=== PATIENT | female | born 2000 | race Caucasian/White ===

== ENCOUNTER 2019-09-23 13:19 | Emergency (ER) | payer OTHER ==
[2019-09-23 14:13] LABS: Influenza A Molecular Negative (Negative); Influenza B Molecular Negative (Negative)
--- NOTE | 2019-09-23 14:28 | UC ---
FLU HPI - HPI Summary HPI Summary: ONSET YESTERDAY OF SORE THROAT, COUGH, HEADACHE, FEVER, CHILLS AND FATIGUE. - History of Current Complaint Chief Complaint: UCGeneralIllness Stated Complaint: HEADACHE FEVER COUGH SORE THROAT Time Seen by Provider: 09/23/19 13:54 Hx Obtained From: Patient Hx Last Menstrual Period: control/condoms Onset/Duration: Gradual Onset, Lasting Days - 1 DAY, Still Present Severity Currently: Mild Severity Initially: Mild Pain Intensity: 0 Pain Scale Used: 0-10 Numeric Associated Signs & Symptoms: Positive: Fever, Cough, Sore Throat, Nasal Congestion, Headache - Allergy/Home Medications Allergies/Adverse Reactions: Allergies Allergy/AdvReac Type Severity Reaction Status Date / Time No Known Allergies Allergy Verified 09/23/19 13:50 Home Medications: Home Medications Enalapril TAB* [Vasotec TAB*] 1 tab PO DAILY WITH MEAL 09/23/19 [History Confirmed 09/23/19] PMH/Surg Hx/FS Hx/Imm Hx - Additional Past Medical History Additional PMH: SOLITARY RIGHT KIDNEY - Surgical History Surgical History: None - Family History Known Family History: Positive: Non-Contributory - Social History Alcohol Use: Rare Substance Use Type: None Smoking Status (MU): Never Smoked Tobacco Review of Systems All Other Systems Reviewed And Are Negative: Yes Constitutional: Positive: Fever, Chills, Fatigue ENT: Positive: Sore Throat, Nasal Discharge Respiratory: Positive: Cough Cardiovascular: Positive: Negative Gastrointestinal: Positive: Vomiting, Nausea Genitourinary: Positive: Negative Musculoskeletal: Negative: Myalgia Neurological/Mental Status: Positive: Headache Physical Exam Triage Information Reviewed: Yes Appearance: Well-Appearing, No Pain Distress, Well-Nourished Vital Signs: Initial Vital Signs Temp 100 F 09/23/19 13:45 Pulse 120 09/23/19 13:45 Resp 18 09/23/19 13:45 BP 106/66 09/23/19 13:45 Pulse Ox 100 09/23/19 13:45 Laboratory Tests 09/23/19 09/23/19 14:01 14:02 Influenza A (Rapid) Negative Influenza B (Rapid) Negative Group A Strep Rapid Negative Vital Signs Reviewed: Yes Eyes: Positive: Conjunctiva Clear ENT: Positive: Hearing grossly normal, Pharynx normal, TMs normal Neck: Positive: Supple, Nontender, No Lymphadenopathy Respiratory Exam: Normal Cardiovascular: Positive: Tachycardia Abdomen Description: Positive: Soft Musculoskeletal: Positive: No Edema Neurological: Positive: Alert Psychological: Positive: Age Appropriate Behavior Skin: Negative: Rashes Flu Course/Dx - Course Course Of Treatment: FLU NEGATIVE. STREP NEGATIVE. LIKELY VIRALLY MEDIATED SYMPTOMS THAT SHOULD RESOLVE ON THEIR OWN WITH TIME. ZOFRAN FOR NAUSEA. REST, HYDRATE, TYLENOL NEEDED. FOLLOW-UP IF NOT IMPROVING EXPECTED. - Differential Dx/Diagnosis Provider Diagnosis: Flu-like symptoms Discharge ED - Sign-Out/Discharge Documenting (check all that apply): Patient Departure All imaging exams completed and their final reports reviewed: No Studies - Discharge Plan Condition: Stable Disposition: HOME Prescriptions: Ondansetron ODT TAB* [Zofran Odt TAB*] 4 mg PO Q6H PRN #20 tab.odt PRN Reason: Nausea/Vomiting Patient Education Materials: Viral Syndrome (ED) Referrals: [facility] [Provider Group] - If Needed Additional Instructions: FLU SWAB NEGATIVE. STREP NEGATIVE. YOUR SYMPTOMS ARE LIKELY VIRALLY MEDIATED AND SHOULD RESOLVE ON THEIR OWN WITH TIME. NO INDICATION FOR ANTIBIOTICS AT PRESENT. REST, HYDRATE, OTC MEDS NEEDED. ZOFRAN TO HELP WITH NAUSEA. SEEK FOLLOW-UP IF YOU ARE NOT IMPROVING OVER THE NEXT 1-2 WEEKS. - Billing Disposition and Condition Condition: STABLE Disposition: Home
== END 2019-09-23 14:31 | disposition home or self-care (01) ==
LOC: UCEAST 13:19
DX: J02.9 Acute pharyngitis, unspecified (principal); R05 Cough; R51 Headache; R50.9 Fever, unspecified; R53.83 Other fatigue; R09.89 Other specified symptoms and signs involving the circulatory and respiratory systems; R11.2 Nausea with vomiting, unspecified
CPT/HCPCS: 87651; 99202; G0463